=== PATIENT | male | born 1995 | race Caucasian/White ===

== ENCOUNTER → 2022-02-15 | Outpatient (CLI) | payer OTHER ==
[2022-02-15 10:18] LABS: ALANINE AMINOTRANSFERASE 23 U/L (12-78); ALBUMIN 4.3 g/dL (3.4-5.0); ALKALINE PHOSPHATASE 51 U/L (46-116); ANION GAP 10 mmol/L (8-16); ASPARTATE AMINOTRANSFERASE 18 U/L (15-37); BILIRUBIN,TOTAL 0.9 mg/dL (0.1-1.0); CALCIUM, TOTAL 9.3 mg/dL (8.8-10.5); CARBON DIOXIDE 28 mmol/L (22-29); CHLORIDE 101 mmol/L (98-107); GLUCOSE,RANDOM 84 mg/dL (70-110); POTASSIUM 4.1 mmol/L (3.5-5.1); SODIUM SERUM 139 mmol/L (136-145); TOTAL PROTEIN, SERUM 7.9 g/dL (6.4-8.2); UREA NITROGEN, BLOOD 11 mg/dL (7-18)
[2022-02-15 10:19] LABS: GLOMERULAR FILTR. RATE CALC > 60 mL/min (>60)
[2022-02-15 10:31] LABS: APPEARANCE,URINE CLEAR (CLEAR); BILIRUBIN,URINE NEGATIVE (NEGATIVE); GLUCOSE, URINE (UA) NEGATIVE (NEGATIVE); KETONES,URINE NEGATIVE (NEGATIVE); LEUKOCYTE ESTERASE ,URINE NEGATIVE (NEGATIVE); NITRATE,URINE NEGATIVE (NEGATIVE); OCCULT BLOOD,URINE NEGATIVE (NEGATIVE); PH,URINE 6.5 (5.0-8.0); PROTEIN,URINE NEGATIVE (NEGATIVE); SPECIFIC GRAVITIY, URINE 1.007 (1.003-1.030); UROBILINOGEN,URINE <=1.0 mg/dL (<=1.0)
== END | disposition home or self-care (01) ==
LOC: LABMN 09:49
PROVIDERS: ATTEND Chiropractor
DX: E11.9 Type 2 diabetes mellitus without complications (principal)
CPT/HCPCS: 80053; 81003